=== PATIENT | male | born 1940 | race Caucasian/White ===

== ENCOUNTER 2017-05-28 10:46 | Emergency (ER) | payer OTHER ==
[~2017-05-28] VITALS: Ht 175.3 cm; Wt 88.0 kg
[~2017-05-28 10:46] MED LIST: ALTACE10 M1; ALTACE10 MG PO; AMLODIPINE BESY10 MG PO; ASPIR-LOW81 MG PO; CARVEDILOL25 MG PO; COREG25 M1 PO; Combivent IH; Coreg PO; GLEEVEC400 MG PO; HYDROCHLOROTHIA25 MG; HYDROCHLOROTHIA25 MG PO; Hydrodiuril,Oretic,E PO; LIPITOR40 MG PO; LONITEN10 MG PO; LOPRESSOR100 M1 PO; Lipitor PO; MECLIZINE HCL12.5 M1 PO; MINOXIDIL10 MG; MINOXIDIL10 MG PO; NORVASC10 MG; NORVASC10 MG PO; Norvasc PO; PLAVIX75 MG; PLAVIX75 MG PO; RAMIPRIL10 MG PO; SIMVASTATIN40 M1 PO
[2017-05-28] MEDS ORDERED: NAPROXEN500 MG PO (12:07)
[2017-05-28 12:31] VITALS: BP 157/77
== END 2017-05-28 12:31 | disposition home or self-care (01) ==
LOC: EME 10:46
PROC: 3E0234Z Introduction of Serum, Toxoid and Vaccine into Muscle, Percutaneous Approach (ICD-10-PCS; principal; 2017-05-28)
DX: S46.002A Unspecified injury of muscle(s) and tendon(s) of the rotator cuff of left shoulder, initial encounter (principal); S40.811A Abrasion of right upper arm, initial encounter; W01.0XXA Fall on same level from slipping, tripping and stumbling without subsequent striking against object, initial encounter; Z23 Encounter for immunization; Z79.02 Long term (current) use of antithrombotics/antiplatelets
CPT/HCPCS: 73030; 99281; 99284; J1885

== ENCOUNTER 2018-02-27 01:53 | Emergency (ER) | payer OTHER ==
[~2018-02-27] VITALS: Ht 175.3 cm; Wt 84.3 kg
[~2018-02-27 01:53] MED LIST changes: +NAPROXEN500 MG PO
[2018-02-27 05:25] LABS: PTT 29.3 SEC (25-37)
[2018-02-27 05:31] LABS: CHLORIDE 106 mEq/L (99-109); POTASSIUM 3.7 mEq/L (3.7-5.4); SODIUM 140 mEq/L (136-147)
[2018-02-27 05:33] LABS: GLUCOSE 98 mg/dL (70-99)
[2018-02-27 05:37] LABS: CREATININE 1.1 mg/dL (0.6-1.3); GFR ESTIMATE (CALCULATED) > 59 mL/min/ (58.99-99999)
[2018-02-27 05:38] LABS: HEMATOCRIT 33.2 % (38.0-50.0); HEMOGLOBIN 11.5 G/DL (12.5-16.6); MCH 32.5 PG (29.0-34.0); MCHC 34.6 G/DL (30.0-36.0); MCV 93.8 FL (86-99); PLATELET COUNT 130 K/uL (156-360); RBC DIS.WIDTH-CV 13.3 % (11.8-14.6); RBC DIS.WIDTH-SD 46.2 % (39-53); RED BLOOD COUNT 3.54 M/uL (4.00-5.50); UREA NITROGEN (BUN) 10 mg/dL (9-23); WHITE BLOOD COUNT 7.6 K/uL (4.1-10.2)
[2018-02-27] MEDS ORDERED: FLEXERIL10 MG PO (06:37)
[2018-02-27] MEDS ORDERED: PERCOCET 5/31 TABLET PO (06:37)
[2018-02-27 07:06] VITALS: BP 116/61
== END 2018-02-27 07:07 | disposition home or self-care (01) ==
LOC: EME 01:53
PROVIDERS: Emergency Medicine
DX: R25.2 Cramp and spasm (principal); R60.0 Localized edema; M25.551 Pain in right hip; Z85.6 Personal history of leukemia; I10 Essential (primary) hypertension; F41.9 Anxiety disorder, unspecified; F32.9 Major depressive disorder, single episode, unspecified; J45.909 Unspecified asthma, uncomplicated; K21.9 Gastro-esophageal reflux disease without esophagitis; Z86.73 Personal history of transient ischemic attack (TIA), and cerebral infarction without residual deficits
CPT/HCPCS: 73502; 80048; 85027; 85610; 85730; 93971; 99281; 99285